=== PATIENT | female | born 1995 | race Caucasian/White ===

== ENCOUNTER 2019-11-27 22:58 | Emergency (ER) | payer SELFPAY ==
[2019-11-27] MEDS ORDERED: Calcium Carbonate 500 MG Tab.Chew PO ONE (23:32)
--- NOTE | 2019-11-27 23:35 | EDM.PDOC ---
ED HPI GENERAL MEDICAL PROBLEM - General Chief Complaint: Chest Pain Stated Complaint: 19 WKS CHEST PAINS Time Seen by Provider: 11/27/19 23:22 Source of Information: Reports: Patient, Family, RN Notes Reviewed History Limitations: Reports: No Limitations - History of Present Illness INITIAL COMMENTS - FREE TEXT/NARRATIVE: 24-year-old female presents emergency department today complaint of chest pain and palpitations. She has had palpitations throughout her has been evaluated by cardiology during her last per her report states this is predominantly PVCs. She does consume caffeine daily she states this particular event she has had palpitations throughout the day but the pain started about an hour before and has persisted there is no new nausea vomiting no shortness of breath no diaphoresis. She recently completed a trial of a Holter monitor for her palpitations that she had during this however the results are not available to her and she gets her care at [place] in [facility]. Estimates she is 19 weeks intrauterine Upper Chest Pain Score (Numeric/FACES): 7 - Related Data Allergies Allergy/AdvReac Type Severity Reaction Status Date / Time amoxicillin Allergy Hives Verified 02/20/17 18:35 Home Meds: Home Meds Cholecalciferol (Vitamin D3) [Vitamin D3] 2,000 unit PO DAILY 02/20/17 [History] Vit Calc,Iron,Folic [ Vitamins] 1 each PO DAILY 02/20/17 [ History] Past Medical History Cardiovascular History: Reports: Other (See Below) Other Cardiovascular History: palpitations [employer] History: Reports: Psychiatric History: Reports: Anxiety, Depression Social & Family History - Family History Family Medical History: Noncontributory - Tobacco Use Smoking Status *Q: Never Smoker - Caffeine Use Caffeine Use: Reports: Coffee, Soda - Recreational Drug Use Recreational Drug Use: No ED ROS GENERAL - Review of Systems Review Of Systems: See Below Constitutional: Reports: No Symptoms HEENT: Reports: No Symptoms Respiratory: Reports: No Symptoms Cardiovascular: Reports: Chest Pain, Palpitations GI/Abdominal: Reports: No Symptoms : Reports: No Symptoms ED EXAM - Physical Exam Exam: See Below Exam Limited By: No Limitations General Appearance: Alert, WD/WN, No Apparent Distress Respiratory/Chest: No Respiratory Distress, Lungs Clear, Normal Breath Sounds, No Accessory Muscle Use, Chest Non-Tender Cardiovascular: Regular Rate, Rhythm, No Murmur GI/Abdominal Exam: Soft, Other () Heart Tones: Present Heart Tones per Min: 170 Movement: Active Course - Vital Signs Last Recorded V/S: Last Vital Signs Temp 98.0 F 11/27/19 23:14 Pulse 80 11/28/19 00:12 Resp 16 11/27/19 23:14 BP 111/61 11/28/19 00:12 Pulse Ox 98 11/27/19 23:14 - Orders/Labs/Meds Orders: Active Orders 24 hr Category Date Time Status Cardiac Monitoring [RC] .As Directed Care 11/27/19 23:31 Active EKG Documentation Completion [RC] ASDIRECTED Care 11/27/19 23:32 Active EKG 12 Lead [EK] Stat Ther 11/27/19 23:32 Ordered Labs: Laboratory Tests 11/27/19 11/27/19 11/27/19 Range/Units 23:31 23:35 23:49 WBC 12.6 H (4.5-11.0) K/uL RBC 4.29 (3.30-5.50) M/uL Hgb 12.0 (12.0-15.0) g/dL Hct 36.1 (36.0-48.0) % MCV 84 (80-98) fL MCH 28 (27-31) pg MCHC 33 (32-36) % Plt Count 232 (150-400) K/uL Neut % (Auto) 73 H (36-66) % Lymph % (Auto) 21 L (24-44) % Walker % (Auto) 5 (2-6) % Eos % (Auto) 1 L (2-4) % Baso % (Auto) 0 (0-1) % Sodium 136 L (140-148) mmol/L Potassium 3.2 L (3.6-5.2) mmol/L Chloride 103 (100-108) mmol/L Carbon Dioxide 23 (21-32) mmol/L Anion Gap 13.2 (5.0-14.0) mmol/L BUN 8 (7-18) mg/dL Creatinine 0.7 (0.6-1.0) mg/dL Est Cr Clr Drug Dosing 98.01 mL/min Estimated GFR (MDRD) > 60 (>60) Glucose 98 (74-106) mg/dL Calcium 8.6 (8.5-10.1) mg/dL Total Bilirubin 0.2 (0.2-1.0) mg/dL AST 13 L (15-37) U/L ALT 18 (12-78) U/L Alkaline Phosphatase 64 (46-116) U/L Troponin I < 0.017 (0.000-0.056) ng/mL Total Protein 7.3 (6.4-8.2) g/dL Albumin 3.2 L (3.4-5.0) g/dL Globulin 4.1 H (2.3-3.5) g/dL Albumin/Globulin Ratio 0.8 L (1.2-2.2) Urine Color Yellow (YELLOW) Urine Appearance Cloudy A (CLEAR) Urine pH 7.0 (5.0-8.0) Ur Specific [place] 1.020 (1.008-1.030) Urine Protein Negative (NEGATIVE) mg/dL Urine Glucose (UA) Normal (NEGATIVE) mg/dL Urine Ketones Negative (NEGATIVE) mg/dL Urine Occult Blood Negative (NEGATIVE) Urine Nitrite Negative (NEGATIVE) Urine Bilirubin Negative (NEGATIVE) Urine Urobilinogen 0.2 (0.2-1.0) EU/dL Ur Leukocyte Esterase Negative (NEGATIVE) Urine RBC 0-5 (0-5) Urine WBC 0-5 (0-5) Ur Epithelial Cells Rare Amorphous Sediment Numerous Urine Bacteria Moderate Urine Mucus Not seen Meds: Medications Discontinued Medications Generic Name Dose Route Start Last Admin Trade Name Freq PRN Reason Stop Dose Admin Calcium Carbonate/Glycine 1,000 mg 11/27/19 23:32 11/27/19 23:48 Tums PO 11/27/19 23:33 1,000 mg ONETIME ONE Administration Departure - Departure Time of Disposition: 00:39 Disposition: Home, Self-Care 01 Condition: Fair Clinical Impression: Atypical chest pain, Palpitations - Discharge Information Instructions: Palpitations, [id number], Nonspecific Chest Pain, [id number] Referrals: PCP,None [Primary Care Provider] - Forms: ED Department Discharge Additional Instructions: Continue with your regular medications, please try and follow-up with your OB provider this week to review your Holter monitor results as well as the possibility of reflux type symptomology, call or return to the emergency department worsening of symptoms Sepsis Event Note - Evaluation Sepsis Screening Result: No Definite Risk - Focused Exam Vital Signs: Vital Signs Temp Pulse Resp BP Pulse Ox 11/28/19 00:12 80 111/61 11/27/19 23:14 98.0 F 91 16 109/71 98 Date Exam was Performed: 11/28/19 Time Exam was Performed: 00:38 - My Orders Last 24 Hours: My Active Orders 11/27/19 23:31 Cardiac Monitoring [RC] .As Directed 11/27/19 23:32 EKG Documentation Completion [RC] ASDIRECTED EKG 12 Lead [EK] Stat - Assessment/Plan Last 24 Hours: My Active Orders 11/27/19 23:31 Cardiac Monitoring [RC] .As Directed 11/27/19 23:32 EKG Documentation Completion [RC] ASDIRECTED EKG 12 Lead [EK] Stat Plan: Assessment Acuity = acute Site and laterality = chest pain complicated patient 19 weeks intrauterine Etiology = unknown suspicious for reflux Manifestations = none Location of injury = Home Lab values = WBC elevated 12.6 consistent leukocytosis, sodium low 136 consistent hyponatremia potassium low at 3.2 consistent hypokalemia troponin was negative urinalysis unremarkable EKG demonstrates sinus rhythm no signs of ST elevation or depression Plan She had some improvement with the Tums provided in the emergency department, I did review lab work with her she is going to try and follow-up with her OB provider this week and to discuss the results of her recent Holter monitor as well as the possibility of reflux treatment This note was dictated using [employer] voice recognition software please call with any questions on syntax or grammar.
== END 2019-11-28 00:45 | disposition home or self-care (01) ==
LOC: JP.ED 22:58
DX: O99.89 Other specified diseases and conditions complicating pregnancy, childbirth and the puerperium (principal); R07.89 Other chest pain; R00.2 Palpitations; Z88.1 Allergy status to other antibiotic agents; Z3A.19 19 weeks gestation of pregnancy
CPT/HCPCS: 36415; 80053; 81001; 84484; 85025; 93005; 93010; 99283; 99285; A9270

== ENCOUNTER 2023-01-26 19:14 | Emergency (ER) | payer BC, MEDICAID ==
[2023-01-26] MEDS ORDERED: Acetaminophen 325 MG Tab PO ONE (20:21)
[2023-01-26] MEDS ORDERED: HYDROmorphone 1 MG/ML Syringe IM ONE (20:21)
[2023-01-26] MEDS ORDERED: Ketorolac 30 MG/ML SDV IM ONE (22:45)
== END 2023-01-26 23:43 | disposition home or self-care (01) ==
LOC: JP.ED 19:14
DX: O99.891 Other specified diseases and conditions complicating pregnancy (principal); N20.0 Calculus of kidney; Z88.0 Allergy status to penicillin; Z3A.18 18 weeks gestation of pregnancy
CPT/HCPCS: 36415; 76770; 76815; 80048; 81001; 85025; 96372; 99284; A9270; J1170; J1885

== ENCOUNTER 2025-05-23 00:07 | Emergency (ER) | payer BC, MEDICAID ==
[2025-05-23 00:43] LABS: BASOPHILS ABSOLUTE AUTO 0.06 K/uL (0.00-0.10); BASOPHILS PERCENT AUTO 0.5 % (0.1-1.3); EOSINOPHILS PERCENT AUTO 0.1 % (0.0-5.4); IMMATURE GRAN ABSOLUTE AUTO 0.04 K/uL (0.00-0.23); IMMATURE GRAN PERCENT AUTO 0.4 % (0.0-0.7); LYMPHOCYTES ABSOLUTE AUTO 1.27 K/uL (0.8-3.3); LYMPHOCYTES PERCENT AUTO 11.5 % (11.4-47.7); MONOCYTES ABSOLUTE AUTO 0.49 K/uL (0.20-0.90); MONOCYTES PERCENT AUTO 4.5 % (3.3-12.6); NEUTROPHILS ABSOLUTE AUTO 9.14 K/uL (1.0-7.6); NEUTROPHILS PERCENT AUTO 83.0 % (40.0-78.1); PLATELET COUNT,PLT 189 K/uL (130-375); RED BLOOD CELL COUNT 4.54 M/uL (3.77-5.24); WHITE BLOOD CELL COUNT,WBC 11.0 K/uL (3.2-11.0)
[2025-05-23 00:45] LABS: EOSINOPHILS ABSOLUTE AUTO 0.01 K/uL (0.00-0.40)
[2025-05-23 00:49] LABS: APPEARANCE,URINE CLOUDY (CLEAR); GLUCOSE,URINE NEGATIVE (NEGATIVE); OCCULT BLOOD,URINE LARGE (NEGATIVE)
[2025-05-23 01:01] LABS: EPITHELIAL CELLS,URINE FEW
[2025-05-23 01:13] LABS: ALANINE AMINOTRANSFERASE,ALT 18 U/L (12-78); ASPARTATE AMNIOTRANSFERASE,AST 15 U/L (15-37); BILIRUBIN TOTAL 0.7 mg/dL (0.2-1.0); BLOOD UREA NITROGEN,BUN 9 mg/dL (7-18); CARBON DIOXIDE,CO2 26 mmol/L (21-32); CHLORIDE,CL 104 mmol/L (100-108); CREATININE 1.0 mg/dL (0.6-1.0); EST CRCL DRUG DOSING (CG) 65.65 mL/min; ESTIMATED GFR 78 mL/min (>60); GLUCOSE RANDOM 98 mg/dL (74-106); LACTIC ACID 0.7 mmol/L (0.4-2.0); POTASSIUM,K 3.4 mmol/L (3.6-5.2); PROTEIN TOTAL,TP 8.2 g/dL (6.4-8.2); SODIUM,NA 138 mmol/L (140-148)
[2025-05-23 01:16] LABS: A/G RATIO 1.1 (1.2-2.2); TSH ULTRASENSITIVE 3.249 uIU/mL (0.358-3.740)
[2025-05-25 21:21] LABS: ANAPLASMA PHAGOCYTOPHILUM PCR Not Detected; BABESIA MICROTI BY PCR Not Detected; EHRLICHIA CHAFFEENSIS BY PCR Not Detected; EHRLICHIA EWINGII/CANIS BY PCR Not Detected; EHRLICHIA MURIS-LIKE BY PCR Not Detected
== END 2025-05-23 01:48 | disposition home or self-care (01) ==
LOC: JP.ED 00:07
DX: R53.1 Weakness (principal); Z79.899 Other long term (current) drug therapy; Z88.1 Allergy status to other antibiotic agents; Z86.16 Personal history of COVID-19
CPT/HCPCS: 36415; 80053; 81001; 83605; 83735; 84443; 85025; 86140; 86618; 87468; 87469; 87484; 87798; 99283; 99284